=== PATIENT | female | born 1975 | race Two or more races ===

== ENCOUNTER 2019-05-19 09:49 | Outpatient (CLI) | payer OTHER ==
[~2019-05-19 09:49] MED LIST: ALDOMET250 MG; DICLOFENAC POTA50 MG PO; HYZAAR 100-12.1 EACH; SYNTHROID200 MCG; SYNTHROID75 MCG; VOLTAREN100 GM TOP
== END 2019-05-19 09:51 | disposition home or self-care (01) ==
LOC: RAD 09:49
DX: M94.261 Chondromalacia, right knee (principal); M21.061 Valgus deformity, not elsewhere classified, right knee; M17.11 Unilateral primary osteoarthritis, right knee

== ENCOUNTER 2024-05-20 23:59 | Emergency (ER) | payer OTHER ==
[~2024-05-20] VITALS: Ht 157.5 cm; Wt 121.6 kg
[2024-05-21] MEDS ORDERED: HYDROCHLOROTH12.5 M2 PO (00:13)
[2024-05-21] MEDS ORDERED: YUVAFEM10 MCG (00:13)
[2024-05-21] MEDS ORDERED: KETOROLAC TROMETHAMINE 60 MG VIAL IM ONE (00:30)
[2024-05-21] MEDS ORDERED: ORPHENADRINE CITRATE 30 MG/ML AMPUL IM ONE (00:30)
[2024-05-21] MEDS ORDERED: NORFLEX100MG PO (01:25)
[2024-05-21] MEDS ORDERED: DICLOFENAC SODI75 MG PO (01:25)
== END 2024-05-21 01:31 | disposition home or self-care (01) ==
LOC: ER 05-21
DX: S39.82XA Other specified injuries of lower back, initial encounter (principal); W19.XXXA Unspecified fall, initial encounter; Y93.89 Activity, other specified; Y92.810 Car as the place of occurrence of the external cause; Y99.8 Other external cause status; M54.9 Dorsalgia, unspecified; Z88.0 Allergy status to penicillin

== ENCOUNTER → 2024-11-26 | Emergency (ER) | payer OTHER ==
[~2024-11-26] VITALS: Ht 157.5 cm; Wt 119.3 kg
[~2024-11-26] MED LIST changes: +DEXAMETHASONE SODIUM PHOSPHATE 4 MG/ML VIAL IM STA; +DICLOFENAC SODI75 MG PO; +HYDROCHLOROTH12.5 M2 PO; +KETOROLAC TROMETHAMINE 60 MG VIAL IM STA; +MECLIZINE HCL 25 MG TABLET PO STA; +NORFLEX100MG PO; +YUVAFEM10 MCG; +ZANAFLEX2 MG PO
== END | disposition home or self-care (01) ==
LOC: ER 15:52
DX: H81.10 Benign paroxysmal vertigo, unspecified ear (principal); Z88.0 Allergy status to penicillin

== ENCOUNTER 2025-01-21 11:57 | Emergency (ER) | payer OTHER ==
[~2025-01-21] VITALS: Ht 157.5 cm; Wt 122.5 kg
[~2025-01-21 11:57] MED LIST changes: -DEXAMETHASONE SODIUM PHOSPHATE 4 MG/ML VIAL IM STA; -KETOROLAC TROMETHAMINE 60 MG VIAL IM STA; -MECLIZINE HCL 25 MG TABLET PO STA
[2025-01-21] MEDS ORDERED: GUAIFENESIN 200 MG/10 ML BLIST.PACK PO ONE (13:00)
[2025-01-21] MEDS ORDERED: METHYLPREDNISOLONE SOD SUCC 125 MG VIAL IM ONE (13:00)
[2025-01-21 13:24] LABS: BASO % 1.1 % (0.1-1.2); EOS # 0.63 (0.04-0.54); EOS % 5.0 % (0.7-7.0); LYMPH # 3.69 (1.18-3.74); LYMPH % 29.1 % (19.3-53.1); MEAN PLATELET VOLUME 9.90 fl (9.4-12.4); MONO # 0.89 (0.24-0.82); MONO % 7.0 % (4.7-12.5); NEUT # 7.30 (1.56-6.13); NEUT % 57.5 % (34.0-71.1); RED CELL DISTRIBUTION WIDTH 12.9 % (11.6-14.4)
== END 2025-01-21 15:28 | disposition home or self-care (01) ==
LOC: ER 12:06
PROVIDERS: General Practice
DX: J06.9 Acute upper respiratory infection, unspecified (principal); Z20.822 Contact with and (suspected) exposure to COVID-19; Z91.018 Allergy to other foods